=== PATIENT | female | born 1980 | race Caucasian/White ===

== ENCOUNTER 2016-11-07 22:10 | Emergency (ER) | payer MEDICAID ==
[2016-11-07] MEDS ORDERED: PREDNISONE 20 MG TAB PO ONE (22:27)
[2016-11-07] MEDS ORDERED: DIPHENHYDRAMINE HCL 25 MG CAPSULE PO ONE (22:27)
--- NOTE | 2016-11-07 22:27 | Emergency Department Record ---
History of Present Illness - General Chief complaint: Rash Stated complaint: RASH Time Seen by Provider: 11/07/16 22:22 Source: Patient Mode of Arrival: Ambulatory Limitations: No limitations - History of Present Illness Initial comments: 36 yo female presents with a poison lexi rash. She has been gardening recently. No fevers or chills. No shortness of breath. She is not a diabetic. It is on the arms legs, chest, abdomen, and face. No fevers. NO shortness of breath. Onset/Timin -: Days(s) Hx Tetanus Toxoid Vaccination: Yes Year of Tetanus Vaccination: 2014 Patient Tetanus UTD (within 5 yrs): Yes Location: Head, Face, LUE, RUE Severity: Mild Consistency: Constant Improves with: Topical medication Associated symptoms: Denies other symptoms Treatments Prior to Arrival: Benadryl - Related Data Previous Rx's Medication Instructions Recorded Albuterol Sulfate [Proair Hfa] 2 puff IH QID PRN #1 inhaler 12/20/15 Diphenhydramine HCl [Benadryl] 25 mg PO Q6H #20 cap 11/07/16 Prednisone [Prednisone 20Mg] 20 mg PO DAILY #10 tab 11/07/16 Allergies Allergy/AdvReac Type Severity Reaction Status Date / Time No Known Drug Allergies Allergy Verified 11/07/16 22:21 Travel Screening - Travel/Exposure Within Last 30 Days Have you traveled within the last 30 days?: No - Travel/Exposure Within Last Year Have you traveled outside the [place] in the last year?: No - Additonal Travel Details Have you been exposed to anyone with a communicable illness?: No Review of Systems Constitutional: Denies: Chills, Fever, Malaise, Weakness Eyes: Denies: Eye discharge ENT: Denies: Congestion, Throat pain Respiratory: Denies: Cough, Dyspnea, Hemoptysis, Stridor, Wheezes Cardiovascular: Denies: Chest pain Endocrine: Denies: Fatigue Gastrointestinal: Denies: Abdominal pain, Nausea, Vomiting Genitourinary: Denies: Dysuria, Urgency Musculoskeletal: Denies: Arthralgia, Back pain, Joint swelling, Myalgia Skin: Reports: Change in color, Pruritus, Rash Neurological: Denies: Headache Psychiatric: Denies: Anxiety Hematological/Lymphatic: Denies: Easy bleeding, Easy bruising Past Medical History - SOCIAL HISTORY Smoking Status: Current every day smoker Alcohol Use: None Drug Use: None - RESPIRATORY Hx Respiratory Disorders: No - CARDIOVASCULAR Hx Cardio Disorders: No - NEURO Hx Neuro Disorders: No - GI Hx GI Disorders: No - Hx Genitourinary Disorders: No - ENDOCRINE Hx Endocrine Disorders: Yes Hx Thyroid Disease: Yes - MUSCULOSKELETAL Hx Musculoskeletal Disorders: No - PSYCH Hx Psych Problems: Yes Hx Depression: Yes - HEMATOLOGY/ONCOLOGY Hx Hematology/Oncology Disorders: No Family Medical History Any Significant Family History?: No Physical Exam - General General Appearance: Alert, Oriented x3, Cooperative, No acute distress - Head Head exam: Normal inspection - Eye Eye exam: Normal appearance. negative: Conjunctival injection, Periorbital swelling - ENT ENT exam: Normal exam Ear exam: Normal external inspection Nasal Exam: Normal inspection Mouth exam: Normal external inspection - Neck Neck exam: Normal inspection, Full ROM. negative: Tenderness - Respiratory Respiratory exam: Normal lung sounds bilaterally. negative: Respiratory distress, Wheezes - Cardiovascular Cardiovascular Exam: Regular rate, Normal rhythm, Normal heart sounds - Extremities Extremities exam: negative: Normal inspection (rash) - Back Back exam: Reports: Normal inspection - Neurological Neurological exam: Alert, Normal gait, Oriented X3, Reflexes normal - Psychiatric Psychiatric exam: Normal affect, Normal mood - Skin Skin exam: Erythema Distribution of rash: Generalized Description of rash: Macular, Papular Course Vital Signs 11/07/16 22:14 Temperature 98.5 F Pulse Rate 90 Respiratory 20 Rate Blood Pressure 108/92 Pulse Ox 98 Disposition Disposition: Discharge Clinical Impression: Poison lexi Disposition: Home, Self-Care Condition: (1) Good Instructions: Poison Lexi (ED) Additional Instructions: Call your doctor for a recheck in the next week if not gone Return if worse, fever or any new concerns Prescriptions: Diphenhydramine HCl [Benadryl] 25 mg PO Q6H #20 cap Prednisone [Prednisone 20Mg] 20 mg PO DAILY #10 tab Forms: Patient Portal Access Time of Disposition: 22:28 Quality - Quality Measures Quality Measures: N/A - Blood Pressure Screening Does Patient Have Any of the Following: No Blood Pressure Classification: Hypertensive Reading Systolic Measurement: 108 Diastolic Measurement: 92 Screening for High Blood Pressure: < Pre-Hypertensive BP, F/U Documented > [ G8950] Pre-Hypertensive Follow-up Interventions: Referral to alternative/primary care provider.
== END 2016-11-07 22:39 | disposition home or self-care (01) ==
LOC: ER 22:10
DX: L23.7 Allergic contact dermatitis due to plants, except food (principal)
CPT/HCPCS: 99282; J7512

== ENCOUNTER 2017-07-01 00:15 | Emergency (ER) | payer MEDICAID ==
--- NOTE | 2017-07-01 00:39 | Emergency Department Record ---
History of Present Illness - General Chief Complaint: Indigestion Stated Complaint: INDIGESTION Time Seen by Provider: 07/01/17 00:22 Source: Patient Mode of Arrival: Ambulatory Limitations: No limitations - History of Present Illness Initial Comments: 37 yo female presents with epigastric pain on and off for about a week. The pain is on and off. It has been constant for about 4 hours. No definite aggravating or alleviating factors. The pain goes across the upper abdomen. No chest pain. No shortness of breath. No vomiting or diarrhea. No food association. She is prescribed Prilosec but does not take it. She does still have a gall bladder. MD Complaint: Other (epigastric pain) -: Week(s) (on and off) Onset: During rest Pain Location: Epigastric Severity: Mild Quality: Aching Consistency: Intermittent Improves With: Nothing Worsens With: Palpation Other Symptoms: Other - Related Data Home Medications Medication Instructions Recorded Confirmed Last Taken Bupropion HCl [Bupropion HCl] 100 mg PO DAILY 07/01/17 07/01/17 Unknown Previous Rx's Medication Instructions Recorded Albuterol Sulfate [Proair Hfa] 2 puff IH QID PRN #1 inhaler 12/20/15 Allergies Allergy/AdvReac Type Severity Reaction Status Date / Time No Known Drug Allergies Allergy Unverified 03/03/17 13:45 Review of Systems Constitutional: Denies: Chills, Fever, Malaise, Weakness Eyes: Denies: Eye discharge, Eye pain, Vision change ENT: Denies: Congestion, Throat pain Respiratory: Denies: Cough Cardiovascular: Denies: Chest pain, Syncope Endocrine: Denies: Fatigue Gastrointestinal: Reports: Abdominal pain. Denies: Constipation, Diarrhea, Hematemesis, Hematochezia, Nausea, Vomiting Genitourinary: Denies: Dysuria, Urgency Musculoskeletal: Reports: Back pain (sees a chiropractor). Denies: Arthralgia, Joint swelling, Myalgia Skin: Denies: Bruising, Change in color Neurological: Denies: Headache Psychiatric: Denies: Anxiety Hematological/Lymphatic: Denies: Blood Clots, Easy bleeding, Easy bruising, Swollen glands Past Medical History - SOCIAL HISTORY Smoking Status: Current every day smoker Drug Use: None - RESPIRATORY Hx Respiratory Disorders: No - CARDIOVASCULAR Hx Cardio Disorders: No - NEURO Hx Neuro Disorders: No - GI Hx GI Disorders: No - Hx Genitourinary Disorders: No - ENDOCRINE Hx Endocrine Disorders: Yes Hx Thyroid Disease: Yes - MUSCULOSKELETAL Hx Musculoskeletal Disorders: No - PSYCH Hx Psych Problems: Yes Hx Depression: Yes - HEMATOLOGY/ONCOLOGY Hx Hematology/Oncology Disorders: No Physical Exam - General General Appearance: Alert, Oriented x3, Cooperative, No acute distress Limitations: No limitations - Head Head exam: Atraumatic, Normal inspection - Eye Eye exam: Normal appearance. negative: Conjunctival injection, Scleral icterus - ENT ENT exam: Normal exam Ear exam: Normal external inspection Nasal Exam: Normal inspection Mouth exam: Normal external inspection - Neck Neck exam: Normal inspection, Full ROM. negative: Tenderness - Respiratory Respiratory exam: Normal lung sounds bilaterally. negative: Respiratory distress - Cardiovascular Cardiovascular Exam: Regular rate, Normal rhythm, Normal heart sounds Peripheral Pulses: 2+: Radial (R), Radial (L) - GI/Abdominal GI/Abdominal exam: Soft, Tenderness (tender epigastric to palpation, otherwise very soft). negative: Distended, Guarding, Rebound, Rigid - Rectal Rectal exam: Deferred - exam: Deferred - Extremities Extremities exam: Normal inspection - Back Back exam: Denies: CVA tenderness (R), CVA tenderness (L) - Neurological Neurological exam: Alert, Oriented X3 - Psychiatric Psychiatric exam: Normal affect, Normal mood - Skin Skin exam: Dry, Intact, Normal color, Warm Course Vital Signs 07/01/17 00:25 Temperature 98.2 F Pulse Rate [ 96 H Pulse Ox Probe] Respiratory 22 Rate Blood Pressure 134/94 [Left Arm] Pulse Ox 97 - Reevaluation(s) Reevaluation #1: 07/01/17 01:09 The CBC was reviewed No acute changes The patient report some but not complete resolution of the pain with GI cocktail Remaining labs pending 07/01/17 01:18 The CMP was reviewed. No significant changes of the bili, alk phos, ast, alt Normal Lipase 07/01/17 01:22 I discussed that the labs are normal I recommended abdominal US for the RUQ pain I offered a transfer tonight or arrange return for US in the morning She is comfortable, no fever, normal labs and prefers to return in the morning I called radiology. She can return for a 10am US. She will remain NPO until then Medical Decision Making - Lab Data Result diagrams: 07/01/17 00:45 04/11/18 00:45 Disposition Disposition: Discharge Clinical Impression: Epigastric pain, RUQ pain Disposition: Home, Self-Care Condition: (1) Good Instructions: Abdominal Pain (ED) Additional Instructions: Return at 9:30am for a recheck and an Ultrasound of the abdomen for the right upper quadrant and epigastric pain Return sooner or be seen if worse, fever, vomiting or any other concerns prior to then Do not eat between now and your ultrasound You may have water to drink Forms: Patient Portal Access Time of Disposition: 01:27 Quality - Quality Measures Quality Measures: N/A - Blood Pressure Screening Does Patient Have Any of the Following: No Blood Pressure Classification: Hypertensive Reading Systolic Measurement: 128 Diastolic Measurement: 90 Screening for High Blood Pressure: < Pre-Hypertensive BP, F/U Documented > [ G8950] Pre-Hypertensive Follow-up Interventions: Referral to alternative/primary care provider.
[2017-07-01] MEDS ORDERED: MAGNESIUM HYDROXIDE/AL HYDROX 30 ML, LIDOCAINE VISC 2% 200 MG PO ONE ×2 (00:40)
[2017-07-01 00:51] LABS: BASO % 0.4 % (0-6); EOS % 2.9 % (0-6); GRAN % 62.3 % (47-80); HEMATOCRIT 39.1 % (35.0-47.0); HEMOGLOBIN 12.6 gm/dl (11.6-16.0); LYMPH % 27.9 % (16-45); MEAN CELL VOLUME 90.5 fl (81-97); MEAN CORPUSCULAR HEMOGLOBIN 29.2 pg (27-33); MEAN CORPUSCULAR HGB CONC 32.2 g/dl (32-36); MEAN PLATELET VOLUME 9.3 fl (7.4-10.4); MONO % 6.5 % (0-9); PLATELET COUNT 360 K/uL (130-400); RED BLOOD COUNT 4.32 M/uL (3.80-5.40); RED CELL DISTRIBUTION WIDTH 14.3 % (11.5-14.5); WHITE BLOOD COUNT W/O DIFF 11.2 K/uL (4.2-12.2)
[2017-07-01] MEDS ORDERED: KETOROLAC 30 MG/ML VIAL IM ONE (01:00)
[2017-07-01 01:04] LABS: BILIRUBIN,TOTAL < 0.20 mg/dL (0.2-1.0); BLOOD UREA NITROGEN 13 mg/dL (6-20); CREATININE 0.8 mg/dL (0.5-0.9); EST GLOMERULAR FILTRATION RATE > 60 mL/min
[2017-07-01 01:07] LABS: GLUCOSE,RANDOM 107 mg/dL (74-109)
[2017-07-01 01:09] LABS: ALB/GLOB RATIO 1.3 (1.1-1.8); ALKALINE PHOSPHATASE 108 U/L (35-104); ALT/SGPT 18 U/L (<33); AST/SGOT 16 U/L (10.0-35.0); LIPASE 39 U/L (13-60)
== END 2017-07-01 01:44 | disposition home or self-care (01) ==
LOC: ER 00:15
DX: R10.13 Epigastric pain (principal); R10.11 Right upper quadrant pain; F17.210 Nicotine dependence, cigarettes, uncomplicated
CPT/HCPCS: 99283 ×2; 96372; 99284; 83690; 85025; 80053; 84703; 76700; J1885

== ENCOUNTER 2017-07-01 09:04 | Emergency (ER) | payer MEDICAID ==
--- NOTE | 2017-07-01 09:16 | Emergency Department Record ---
History of Present Illness - General Chief Complaint: Recheck - Other Stated Complaint: RECHECK/ULTRASOUND Time Seen by Provider: 07/01/17 09:12 Source: Patient Mode of arrival: Ambulatory Limitations: No limitations - History of Present Illness Initial Comments: The patient is here for a prescheduled US. She was in the ED this AM early due to a one week hx of upper AP. The pain is intermittent and not better or worse with eating. She denies any recent fever, chills, CP, SOB, or dysuria. The patient had normal lab work 8 hours ago and was asked to return this AM for the US. She states the pain is improved and she was able to sleep after discharge. There is no pain at this time but she is having mild tenderness to palpation of the RUQ. Complaint: Other Onset/Timin -: Days(s) Initial Visit For: Other Returns Today for: Other Symptoms Since Prior Visit: Improved Associated Symptoms: Abdominal pain - Related Data Previous Rx's Medication Instructions Recorded Albuterol Sulfate [Proair Hfa] 2 puff IH QID PRN #1 inhaler 12/20/15 Allergies Allergy/AdvReac Type Severity Reaction Status Date / Time No Known Drug Allergies Allergy Unverified 03/03/17 13:45 Travel Screening - Travel/Exposure Within Last 30 Days Have you traveled within the last 30 days?: No Review of Systems Constitutional: Denies: Chills, Fever Eyes: Denies: Eye discharge ENT: Denies: Congestion Respiratory: Denies: Cough, Dyspnea Past Medical History - SOCIAL HISTORY Smoking Status: Current every day smoker Alcohol Use: None Drug Use: None - RESPIRATORY Hx Respiratory Disorders: No - CARDIOVASCULAR Hx Cardio Disorders: No - NEURO Hx Neuro Disorders: No - GI Hx GI Disorders: No - Hx Genitourinary Disorders: No - ENDOCRINE Hx Endocrine Disorders: Yes Hx Thyroid Disease: Yes - MUSCULOSKELETAL Hx Musculoskeletal Disorders: No - PSYCH Hx Psych Problems: Yes Hx Depression: Yes - HEMATOLOGY/ONCOLOGY Hx Hematology/Oncology Disorders: No Family Medical History Any Significant Family History?: No Physical Exam - General General Appearance: Alert, Oriented x3, Cooperative, No acute distress - Head Head exam: Atraumatic, Normocephalic, Normal inspection - Eye Eye exam: Normal appearance, PERRL - Neck Neck exam: Normal inspection, Full ROM. negative: Tenderness - Respiratory Respiratory exam: Normal lung sounds bilaterally. negative: Respiratory distress - Cardiovascular Cardiovascular Exam: Regular rate, Normal rhythm, Normal heart sounds - GI/Abdominal GI/Abdominal exam: Soft, Tenderness (There is mild RUQ tenderness to palpation.) . negative: Distended, Guarding, Rebound, Rigid Course Vital Signs 07/01/17 09:09 Temperature 97.6 F Pulse Rate 79 Respiratory 20 Rate Blood Pressure 123/84 Pulse Ox 98 - Reevaluation(s) Reevaluation #1: The patient is doing very well at this time. She presently denies any pain or discomfort unless palpating the abdomen. I did explain to her that the US did not demonstrate any acute abnormality except a fatty liver. She is to eat a bland diet and take her Prilosec and see her PCP in 1-2 weeks for recheck. 07/01/17 10:22 Medical Decision Making - Data Complexity MDM Data: Labs Ordered and/or Reviewed, X-Ray Ordered and/or Reviewed - Lab Data Result diagrams: 07/01/17 09:20 - Radiology Data Radiology results: Report reviewed (US: Fatty liver, Neg GB abnormality.) Disposition Disposition: Discharge Clinical Impression: Epigastric pain Disposition: Home, Self-Care Condition: (2) Stable Instructions: Abdominal Pain (ED) Additional Instructions: Please eat a bland diet and take your Prilosec. Please see your family doctor in 1-2 weeks for recheck. Return to the ER for any worsening pain, fever, or vomiting. Forms: Patient Portal Access Time of Disposition: 10:24 Quality - Quality Measures Quality Measures: N/A - Blood Pressure Screening View Details: Yes Does Patient Have Any of the Following: No Blood Pressure Classification: Pre-Hypertensive BP Reading Systolic Measurement: 123 Diastolic Measurement: 84 Screening for High Blood Pressure: < Pre-Hypertensive BP, F/U Documented > [ G8950] Pre-Hypertensive Follow-up Interventions: Referral to alternative/primary care provider.
[2017-07-01 09:24] LABS: BASO % 0.5 % (0-6); EOS % 3.4 % (0-6); GRAN % 63.4 % (47-80); HEMATOCRIT 42.2 % (35.0-47.0); HEMOGLOBIN 13.1 gm/dl (11.6-16.0); LYMPH % 24.3 % (16-45); MEAN CORPUSCULAR HEMOGLOBIN 27.9 pg (27-33); MEAN PLATELET VOLUME 9.2 fl (7.4-10.4); MONO % 8.4 % (0-9); PLATELET COUNT 365 K/uL (130-400); RED BLOOD COUNT 4.69 M/uL (3.80-5.40); RED CELL DISTRIBUTION WIDTH 14.4 % (11.5-14.5); WHITE BLOOD COUNT W/O DIFF 10.7 K/uL (4.2-12.2)
--- NOTE | 2017-07-02 15:15 | ULTRASOUND REPORT ---
EXAM: ULTRASOUND ABDOMEN, COMPLETE HISTORY: RIGHT UPPER QUADRANT ABDOMINAL PAIN. TECHNIQUE: Complete real-time ultrasound examination of the abdomen. COMPARISON: None. FINDINGS: Visualized pancreas appeared negative although portions of the pancreas were obscured by overlying bowel content. Abdominal aorta appears negative. IVC was negative as seen. There is slight heterogeneity in the liver parenchyma. This probably represents some overall diffuse fatty infiltration of the liver with an area of slight sparing anteroinferiorly in the left lobe. Allowing for this, no discrete hepatic mass identified. No intrahepatic biliary dilatation seen. The right kidney measures 11.4 cm in length with no hydronephrosis evident. The common duct was seen and was of normal caliber. Gallbladder appears negative with no gallstones seen and no diffuse gallbladder wall thickening seen. The jewelry sales indicates that there was severe abdominal pain all over the abdomen, nonspecific to the region of the gallbladder. The left kidney measures 11 cm in length with no hydronephrosis evident. The spleen appears negative. IMPRESSION: 1. NO GALLSTONES OR BILIARY DILATATION SEEN. 2. NO HYDRONEPHROSIS EVIDENT. 3. THERE IS PROBABLY SOME RELATIVELY DIFFUSE FATTY INFILTRATION OF THE LIVER. THERE IS A NONSPECIFIC FOCAL AREA OF SOMEWHAT HYPOECHOIC APPEARANCE ALONG THE ANTEROINFERIOR ASPECT OF THE LEFT LOBE OF THE LIVER. THIS IS PROBABLY JUST AN AREA OF RELATIVE FOCAL FATTY SPARING. COMPARISON TO ANY PRIOR ABDOMEN ULTRASOUNDS WOULD BE USEFUL TO COMPARE. IF CLINICALLY WARRANTED, THIS COULD BE FURTHER ASSESSED WITH AN MRI OF THE LIVER IF NOT CONTRAINDICATED. JOB NUMBER: [id number] MTDD
== END 2017-07-01 10:37 | disposition home or self-care (01) ==
LOC: ER 09:04
DX: R10.13 Epigastric pain (principal); F17.210 Nicotine dependence, cigarettes, uncomplicated
CPT/HCPCS: 76700; 85025

== ENCOUNTER 2017-07-18 01:05 | Emergency (ER) | payer MEDICAID ==
[2017-07-18] MEDS ORDERED: ONDANSETRON HCL IV 4 MG/2 ML VIAL IVP ONE (01:17)
[2017-07-18] MEDS ORDERED: 0.9 % SODIUM CHLORIDE 1000ML 1,000 ML IV SCH (01:30)
--- NOTE | 2017-07-18 01:30 | Emergency Department Record ---
History of Present Illness - General Chief complaint: Cold Stated complaint: VOMITING,CHILLS Time Seen by Provider: 07/18/17 01:07 Source: Patient Mode of Arrival: Ambulatory Limitations: No limitations - History of Present Illness Initial comments: 37 yo female presents to ED for evaluation stating "I think I have a virus that isn't getting better". Patient reports non-productive cough and congestion symptoms as well as fever and chills. Patient reports that she was recently seen and evaluated, started on prednisone that improved her symptoms temporarily. Patient denies urinary symptoms or abdominal pain, denies headache or neck stiffness symptoms. MD complaint: Other Onset/Timin -: Days(s) Location: Other (cough) Quality: Aching Consistency: Constant, Getting worse Improves with: None Worsens with: None Context- Ear: Recent illness Associated Symptoms: Cough, Sore throat - Related Data Home Medications Medication Instructions Recorded Confirmed Last Taken Omeprazole [Prilosec] 20 mg PO DAILY 07/18/17 07/18/17 Unknown Previous Rx's Medication Instructions Recorded Doxycycline Hyclate [Doxycycline] 100 mg PO BID #14 cap 07/18/17 Ondansetron [Zofran Odt] 4 mg PO Q8H PRN #15 tab.rapdis 07/18/17 Allergies Allergy/AdvReac Type Severity Reaction Status Date / Time No Known Drug Allergies Allergy Unverified 07/08/17 14:24 Travel Screening - Travel/Exposure Within Last 30 Days Have you traveled within the last 30 days?: No - Travel/Exposure Within Last Year Have you traveled outside the [place] in the last year?: No - Additonal Travel Details Have you been exposed to anyone with a communicable illness?: No - Travel Symptoms Symptom Screening: None Review of Systems Constitutional: Reports: Chills, Fever, Malaise. Denies: Night sweats Eyes: Denies: Eye discharge, Eye pain ENT: Reports: Congestion. Denies: Ear pain, Epistaxis Respiratory: Reports: Cough. Denies: Dyspnea Cardiovascular: Denies: Chest pain, Dyspnea on exertion, Palpitations Endocrine: Reports: Fatigue Gastrointestinal: Reports: Nausea, Vomiting. Denies: Abdominal pain, Constipation Genitourinary: Denies: Incontinence, Retention Musculoskeletal: Denies: Arthralgia, Back pain Skin: Denies: Bruising, Change in color Neurological: Denies: Abnormal gait, Confusion, Headache, Seizure Psychiatric: Denies: Anxiety Hematological/Lymphatic: Denies: Anemia, Blood Clots Past Medical History - SOCIAL HISTORY Smoking Status: Current every day smoker Alcohol Use: None Drug Use: None - RESPIRATORY Hx Respiratory Disorders: No - CARDIOVASCULAR Hx Cardio Disorders: No - NEURO Hx Neuro Disorders: No - GI Hx GI Disorders: No - Hx Genitourinary Disorders: No - ENDOCRINE Hx Endocrine Disorders: Yes Hx Thyroid Disease: Yes - MUSCULOSKELETAL Hx Musculoskeletal Disorders: No - PSYCH Hx Psych Problems: Yes Hx Depression: Yes - HEMATOLOGY/ONCOLOGY Hx Hematology/Oncology Disorders: No Family Medical History Any Significant Family History?: No Physical Exam - General General Appearance: Alert, Oriented x3, Cooperative, Mild distress Limitations: No limitations - Head Head exam: Atraumatic, Normocephalic, Normal inspection Head exam detail: negative: Abrasion, Contusion, Gates's sign, General tenderness, Hematoma, Laceration - Eye Eye exam: Normal appearance. negative: Conjunctival injection, Periorbital swelling, Periorbital tenderness, Scleral icterus - ENT Ear exam: negative: Auricular hematoma, Auricular trauma Nasal Exam: negative: Active bleeding, Discharge, Dried blood, Foreign body Mouth exam: negative: Drooling, Laceration, Muffled voice, Tongue elevation - Neck Neck exam: Normal inspection. negative: Meningismus, Tenderness - Respiratory Respiratory exam: Normal lung sounds bilaterally. negative: Rales, Respiratory distress, Rhonchi, Stridor - Cardiovascular Cardiovascular Exam: Regular rate, Normal rhythm, Normal heart sounds - GI/Abdominal GI/Abdominal exam: Soft. negative: Rebound, Rigid, Tenderness - Rectal Rectal exam: Deferred - exam: Deferred - Extremities Extremities exam: Normal inspection. negative: Calf tenderness, Pedal edema, Tenderness - Back Back exam: Denies: CVA tenderness (R), CVA tenderness (L) - Neurological Neurological exam: Alert, Normal gait, Oriented X3 - Psychiatric Psychiatric exam: Normal affect, Normal mood - Skin Skin exam: Normal color. negative: Abrasion Type of lesion: negative: abrasion Course Vital Signs 07/18/17 01:15 Temperature 99.4 F Pulse Rate [ 110 H Pulse Ox Probe] Respiratory 24 Rate Blood Pressure 134/94 [Left Arm] Pulse Ox 97 - Reevaluation(s) Reevaluation #1: 07/18/17 02:02 Labs reviewed and are grossly unremarkable for an acute process. Patient reassessed and reports improvement of her symptoms, will prescribe Zofran for her nausea symptoms and Doxycycline for her URI symptoms. Patient appears stable for discharge at this time. Medical Decision Making - Lab Data Result diagrams: 07/18/17 01:40 07/18/17 01:40 Disposition Disposition: Discharge Clinical Impression: URI (upper respiratory infection) Qualifiers: URI type: unspecified URI Qualified Code(s): J06.9 - Acute upper respiratory infection, unspecified Disposition: Home, Self-Care Condition: (2) Stable Instructions: Upper Respiratory Infection (ED) Additional Instructions: Return to ED if your symptoms worsen or if you have any concerns. Doxycycline and Zofran as directed. Follow-up with your family doctor in 3-5 days as directed. Prescriptions: Doxycycline Hyclate [Doxycycline] 100 mg PO BID #14 cap Ondansetron [Zofran Odt] 4 mg PO Q8H PRN #15 tab.rapdis PRN Reason: Nausea/Vomiting Forms: Patient Portal Access Time of Disposition: 02:05 Quality - Quality Measures Quality Measures: N/A - Blood Pressure Screening Does Patient Have Any of the Following: No Blood Pressure Classification: Hypertensive Reading Systolic Measurement: 134 Diastolic Measurement: 94 Screening for High Blood Pressure: < First Hypertensive BP, F/U Documented > [ G8950] First Hypertensive Follow-up Interventions: Referral to alternative/primary care provider.
[2017-07-18 01:46] LABS: BASO % 0.4 % (0-6); EOS % 4.3 % (0-6); HEMATOCRIT 41.5 % (35.0-47.0); HEMOGLOBIN 13.4 gm/dl (11.6-16.0); LYMPH % 17.9 % (16-45); MEAN CELL VOLUME 90.4 fl (81-97); MEAN CORPUSCULAR HEMOGLOBIN 29.2 pg (27-33); MEAN CORPUSCULAR HGB CONC 32.3 g/dl (32-36); MEAN PLATELET VOLUME 9.6 fl (7.4-10.4); MONO % 8.4 % (0-9); PLATELET COUNT 374 K/uL (130-400); RED BLOOD COUNT 4.59 M/uL (3.80-5.40); RED CELL DISTRIBUTION WIDTH 14.7 % (11.5-14.5)
[2017-07-18 01:47] LABS: URINE APPEARANCE CLEAR; URINE BILIRUBIN NEGATIVE (NEGATIVE); URINE BLOOD NEGATIVE (NEGATIVE); URINE COLOR YELLOW; URINE GLUCOSE (UA) NEGATIVE (NEGATIVE); URINE KETONE NEGATIVE (NEGATIVE); URINE LEUKOCYTE ESTERASE NEGATIVE (NEGATIVE); URINE NITRITE NEGATIVE (NEGATIVE); URINE PROTEIN TRACE (NEGATIVE); URINE UROBILINOGEN 0.2 E.U./dL (0.20 - 1.00)
[2017-07-18 01:51] LABS: HCG,QUALITATIVE URINE NEGATIVE (NEGATIVE); URINE EPITHELIAL CELLS 0 - 2 (FEW); URINE RBC NONE SEEN (NONE SEEN); URINE WBC 0 - 2 (0-2/hpf)
[2017-07-18 01:52] LABS: BLOOD UREA NITROGEN 11 mg/dL (6-20); INFLUENZA A NEGATIVE (NEGATIVE); INFLUENZA B NEGATIVE (NEGATIVE)
[2017-07-18 01:53] LABS: CREATININE 0.8 mg/dL (0.5-0.9); EST GLOMERULAR FILTRATION RATE > 60 mL/min; TOTAL PROTEIN 7.2 g/dL (6.6-8.7)
[2017-07-18 01:55] LABS: GLUCOSE,RANDOM 106 mg/dL (74-109)
[2017-07-18 01:58] LABS: ALB/GLOB RATIO 1.3 (1.1-1.8); ALKALINE PHOSPHATASE 109 U/L (35-104); ALT/SGPT 17 U/L (<33); AST/SGOT 15 U/L (10.0-35.0)
== END 2017-07-18 02:19 | disposition home or self-care (01) ==
LOC: ER 01:05
DX: J06.9 Acute upper respiratory infection, unspecified (principal); R05 Cough; R11.2 Nausea with vomiting, unspecified; F17.210 Nicotine dependence, cigarettes, uncomplicated
CPT/HCPCS: 99284 ×2; 85025; 80053; 81001; 81025; 87400; J2405; J7030

== ENCOUNTER 2017-11-20 10:06 | Emergency (ER) | payer MEDICAID ==
[2017-11-20] MEDS ORDERED: CLINDAMYCIN 150 MG CAP PO ONE (11:22)
--- NOTE | 2017-11-20 11:28 | Emergency Department Record ---
History of Present Illness - General Chief complaint: Abscess Stated complaint: CYST ON LIP FACE SWELLED Time Seen by Provider: 11/20/17 11:20 Source: Patient Mode of Arrival: Ambulatory Limitations: No limitations - History of Present Illness Initial comments: 37 yo female presents with pain and swelling of the upper lip on the right. She had a "cyst" inside the lip on Thursday. She popped it and has drained it a a couple of occasions. The lip swelling has continued. No facial redness. No eye pain or swelling. No fevers. The drainage has stopped. NO lesions on the face. MD complaint: Abscess/boil Onset/Timin -: Days(s) Hx Tetanus Toxoid Vaccination: Yes Year of Tetanus Vaccination: 2014 Location: Face Severity: Moderate Severity scale (1-10): 7 Quality: Other Consistency: Constant Improves with: None Worsens with: None Context: None Associated symptoms: Denies other symptoms Treatments Prior to Arrival: Attempted to drain pus at home - Related Data Previous Rx's Medication Instructions Recorded Clindamycin HCl [Cleocin HCl] 300 mg PO QID #40 capsule 11/20/17 Ibuprofen [Motrin 600Mg] 600 mg PO Q6H #20 tablet 11/20/17 Allergies Allergy/AdvReac Type Severity Reaction Status Date / Time No Known Drug Allergies Allergy Verified 11/20/17 11:02 Travel Screening - Travel/Exposure Within Last 30 Days Have you traveled within the last 30 days?: No Review of Systems Constitutional: Denies: Chills, Fever, Malaise, Weakness Eyes: Denies: Eye discharge, Eye pain, Vision change ENT: Reports: Other (Lip pain). Denies: Congestion, Ear pain, Throat pain Cardiovascular: Denies: Chest pain, Syncope Endocrine: Denies: Fatigue Gastrointestinal: Denies: Abdominal pain, Diarrhea, Nausea, Vomiting Genitourinary: Denies: Dysuria, Urgency Musculoskeletal: Denies: Arthralgia, Back pain, Myalgia Skin: Reports: As per HPI, Change in color, Lesions, Rash. Denies: Bruising Neurological: Denies: Headache Psychiatric: Denies: Anxiety Hematological/Lymphatic: Denies: Easy bleeding, Easy bruising Past Medical History - SOCIAL HISTORY Smoking Status: Current every day smoker Alcohol Use: None Drug Use: None - RESPIRATORY Hx Respiratory Disorders: No - CARDIOVASCULAR Hx Cardio Disorders: No - NEURO Hx Neuro Disorders: No - GI Hx GI Disorders: No - Hx Genitourinary Disorders: No - ENDOCRINE Hx Endocrine Disorders: Yes Hx Thyroid Disease: Yes - MUSCULOSKELETAL Hx Musculoskeletal Disorders: No - PSYCH Hx Psych Problems: Yes Hx Depression: Yes - HEMATOLOGY/ONCOLOGY Hx Hematology/Oncology Disorders: No Family Medical History Any Significant Family History?: No Physical Exam - General General Appearance: Alert, Oriented x3, Cooperative, No acute distress Limitations: No limitations - Head Head exam: negative: Normal inspection Image of Face/Head: 1 - normal external skin, no lesions externally, soft swelling of the right side of the upper lip. No erythema. Interally raw mucosal site where it appears she drained the original lesion - Eye Eye exam: Normal appearance. negative: Conjunctival injection - ENT ENT exam: Mucous membranes moist. negative: Mucous membranes dry, Normal orophraynx (see above) Ear exam: Normal external inspection Nasal Exam: Normal inspection Mouth exam: Normal external inspection, Tongue normal. negative: Tongue elevation Teeth exam: Normal inspection. negative: Dental caries, Gingival enlargement Throat exam: Normal inspection. negative: Tonsillar erythema - Neck Neck exam: Normal inspection, Full ROM. negative: Lymphadenopathy, Tenderness - Respiratory Respiratory exam: Normal lung sounds bilaterally. negative: Respiratory distress - Neurological Neurological exam: Alert, Oriented X3 - Psychiatric Psychiatric exam: Normal affect, Normal mood - Skin Skin exam: Dry, Intact, Normal color, Warm Course Vital Signs 11/20/17 10:58 Temperature 98.1 F Pulse Rate 85 Respiratory 18 Rate Blood Pressure 137/91 Pulse Ox 97 - Reevaluation(s) Reevaluation #1: Bedside US was used to assess for an organized fluid collection No visible obvious fluid collection or abscess I recommend warm compresses, Clindamycin and reassess in 24-48 if not improving. She was instructed to return or be seen sooner if worse 11/20/17 11:36 Disposition Disposition: Discharge Clinical Impression: Cellulitis of lip Disposition: Home, Self-Care Condition: (1) Good Instructions: Cellulitis (ED) Additional Instructions: Apply a warm compress every 6 hours Take the antibiotic every 6 hours Return if worse, fever, skin blisters, drainage, face swelling, face redness Prescriptions: Clindamycin HCl [Cleocin HCl] 300 mg PO QID #40 capsule Ibuprofen [Motrin 600Mg] 600 mg PO Q6H #20 tablet Forms: Patient Portal Access Time of Disposition: 11:38 Quality - Quality Measures Quality Measures: N/A - Blood Pressure Screening Does Patient Have Any of the Following: No Blood Pressure Classification: Hypertensive Reading Systolic Measurement: 137 Diastolic Measurement: 91 Screening for High Blood Pressure: < Pre-Hypertensive BP, F/U Documented > [ G8950] Pre-Hypertensive Follow-up Interventions: Referral to alternative/primary care provider.
[2017-11-20] MEDS ORDERED: IBUPROFEN 600 MG TABLET PO ONE (11:35)
== END 2017-11-20 11:48 | disposition home or self-care (01) ==
LOC: ER 10:06
DX: K13.0 Diseases of lips (principal); F17.210 Nicotine dependence, cigarettes, uncomplicated
CPT/HCPCS: 99283

== ENCOUNTER 2018-03-17 18:47 | Emergency (ER) | payer MEDICAID ==
--- NOTE | 2018-03-17 19:10 | Emergency Department Record ---
History of Present Illness - General Chief complaint: Dental Stated complaint: FACIAL SWELLILNG Time Seen by Provider: 03/17/18 18:55 Source: Patient Mode of Arrival: Ambulatory Limitations: No limitations - History of Present Illness Initial comments: pt c/o a 'cyst' in the r upper lip. she has had this before and has 'drained' it herself and then got a cellulitis involving the side of her face [5mos ago]. she was given clindamycin and that helped. MD complaint: Other Onset/Timin -: Days(s) Severity: Moderate Severity scale (1-10): 4 Quality: Aching Consistency: Constant Associated Symptoms: Other (swelling of lip) - Related Data Home Medications Medication Instructions Recorded Confirmed Last Taken Levothyroxine Sodium [Synthroid] 50 mcg PO DAILY 03/17/18 03/17/18 1 Day Ago ~03/16/18 Lurasidone HCl [Latuda] 40 mg PO DAILY 03/17/18 03/17/18 1 Day Ago ~03/16/18 Previous Rx's Medication Instructions Recorded Clindamycin HCl 300 mg PO Q6HR #28 capsule 03/17/18 Allergies Allergy/AdvReac Type Severity Reaction Status Date / Time No Known Drug Allergies Allergy Verified 03/17/18 18:54 Travel Screening - Travel/Exposure Within Last 30 Days Have you traveled within the last 30 days?: No - Travel/Exposure Within Last Year Have you traveled outside the [place] in the last year?: No - Additonal Travel Details Have you been exposed to anyone with a communicable illness?: No - Travel Symptoms Symptom Screening: None Review of Systems Reviewed: No additional complaints except as noted below Constitutional: Reports: As per HPI. Denies: Chills, Fever, Malaise, Night sweats, Weakness, Weight change Eyes: Reports: As per HPI. Denies: Eye discharge, Eye pain, Photophobia, Vision change ENT: Reports: As per HPI. Denies: Congestion, Dental pain, Ear pain, Epistaxis , Hearing loss, Throat pain Respiratory: Reports: As per HPI. Denies: Cough, Dyspnea, Hemoptysis, Stridor, Wheezes Cardiovascular: Reports: As per HPI. Denies: Arrhythmia, Chest pain, Dyspnea on exertion, Edema, Murmurs, Orthopnea, Palpitations, Paroxysmal nocturnal dyspnea, Rheumatic Fever, Syncope Endocrine: Reports: As per HPI. Denies: Fatigue, Heat or cold intolerance, Polydipsia, Polyuria Gastrointestinal: Reports: As per HPI. Denies: Abdominal pain, Constipation, Diarrhea, Hematemesis, Hematochezia, Melena, Nausea, Vomiting Genitourinary: Reports: As per HPI. Denies: Abnormal menses, Discharge, Dyspareunia, Dysuria, Frequency, Hematuria, Incontinence, Retention, Urgency Musculoskeletal: Reports: As per HPI. Denies: Arthralgia, Back pain, Gout, Joint swelling, Myalgia, Neck pain Skin: Reports: As per HPI. Denies: Bruising, Change in color, Change in hair/ nails, Lesions, Pruritus, Rash Neurological: Reports: As per HPI. Denies: Abnormal gait, Confusion, Headache, Numbness, Paresthesias, Seizure, Tingling, Tremors, Vertigo, Weakness Psychiatric: Reports: As per HPI. Denies: Anxiety, Auditory hallucinations, Depression, Homicidal thoughts, Suicidal thoughts, Visual hallucinations Hematological/Lymphatic: Reports: As per HPI. Denies: Anemia, Blood Clots, Easy bleeding, Easy bruising, Swollen glands Past Medical History - SOCIAL HISTORY Smoking Status: Current every day smoker Alcohol Use: None, Rare Drug Use: None - RESPIRATORY Hx Respiratory Disorders: No - CARDIOVASCULAR Hx Cardio Disorders: No - NEURO Hx Neuro Disorders: No - GI Hx GI Disorders: No - Hx Genitourinary Disorders: No - ENDOCRINE Hx Endocrine Disorders: Yes Hx Thyroid Disease: Yes - MUSCULOSKELETAL Hx Musculoskeletal Disorders: No - PSYCH Hx Psych Problems: Yes Hx Depression: Yes - HEMATOLOGY/ONCOLOGY Hx Hematology/Oncology Disorders: No Family Medical History Any Significant Family History?: Yes Physical Exam - General General Appearance: Alert, Oriented x3, Cooperative, No acute distress - Head Head exam: Normal inspection - Eye Eye exam: Normal appearance, PERRL, EOMI Pupils: Normal accommodation - ENT ENT exam: Normal exam, Mucous membranes moist, Normal external ear exam, Normal orophraynx, TM's normal bilaterally Ear exam: Normal external inspection. negative: External canal tenderness Nasal Exam: Normal inspection. negative: Discharge, Sinus tenderness Mouth exam: Tongue normal, Other (firm pea sized nodule in r upper lip. minor swelling. erythema to inside of lip) Teeth exam: Normal inspection. negative: Dental caries Throat exam: Normal inspection. negative: Tonsillar erythema, Tonsillar exudate - Neck Neck exam: Normal inspection, Full ROM. negative: Tenderness - Respiratory Respiratory exam: Normal lung sounds bilaterally. negative: Respiratory distress - Cardiovascular Cardiovascular Exam: Regular rate, Normal rhythm, Normal heart sounds - GI/Abdominal GI/Abdominal exam: Soft, Normal bowel sounds. negative: Tenderness - Rectal Rectal exam: Deferred - exam: Deferred - Extremities Extremities exam: Normal inspection, Full ROM, Normal capillary refill. negative: Tenderness - Back Back exam: Reports: Normal inspection, Full ROM. Denies: Muscle spasm, Rash noted, Tenderness - Neurological Neurological exam: Alert, CN II-XII intact, Normal gait, Oriented X3 - Psychiatric Psychiatric exam: Normal affect, Normal mood - Skin Skin exam: Dry, Intact, Normal color, Warm Course Vital Signs 03/17/18 18:49 Temperature 98.0 F Pulse Rate 85 Respiratory 18 Rate Blood Pressure 120/89 Pulse Ox 99 Disposition Disposition: Discharge Clinical Impression: Median nodule of upper lip Cellulitis Qualifiers: Site of cellulitis: face Qualified Code(s): L03.211 - Cellulitis of face Disposition: Home, Self-Care Condition: (1) Good Instructions: Cellulitis (ED) Additional Instructions: follow up with family doctor. tomorrow. follow up with oral surgeon imelda without fail. return sooner if worse. moist heat. motrin as needed Prescriptions: Clindamycin HCl 300 mg PO Q6HR #28 capsule Quality - Quality Measures Quality Measures: N/A - Blood Pressure Screening Does Patient Have Any of the Following: No Blood Pressure Classification: Pre-Hypertensive BP Reading Systolic Measurement: 120 Diastolic Measurement: 89 Screening for High Blood Pressure: < Pre-Hypertensive BP, F/U Documented > [ G8950] Pre-Hypertensive Follow-up Interventions: Follow-up with rescreen every year.
== END 2018-03-17 19:40 | disposition home or self-care (01) ==
LOC: ER 18:47
DX: L03.211 Cellulitis of face (principal); K13.0 Diseases of lips; F17.210 Nicotine dependence, cigarettes, uncomplicated
CPT/HCPCS: 99282

== ENCOUNTER 2018-03-20 23:05 | Emergency (ER) | payer MEDICAID ==
--- NOTE | 2018-03-20 23:30 | Emergency Department Record ---
History of Present Illness - General Chief complaint: Pain Stated complaint: FACIAL SWELLING/PAIN Time Seen by Provider: 03/20/18 23:08 Source: Patient Mode of Arrival: Ambulatory Limitations: No limitations - History of Present Illness Initial comments: 37 yo female presents to ED for evaluation of increased swelling and pain to the right upper lip. Patient reports that she is taking Augmentin and Clindamycin following examination for facial cellulitis 03/17/18, reports that her pain symptoms have worsened. Patient denies fevers, chills, or recent illness. Patient denies health problems at her baseline. MD Complaint: Other Onset/Timin -: Days(s) History of Same: Yes Radiation: Proximal Severity scale (1-10): 8 Quality: Aching Consistency: Constant Improves with: Nothing Worsens with: Palpation Associated Symptoms: Denies other symptoms - Related Data Home Medications Medication Instructions Recorded Confirmed Last Taken Ibuprofen [Motrin] 800 mg PO Q8H PRN 03/20/18 03/20/18 03/20/18 Previous Rx's Medication Instructions Recorded Clindamycin HCl 300 mg PO Q6HR #28 capsule 03/17/18 Hydrocodone/Acetaminophen [Haw[place]orne 1 each PO Q6H PRN #5 tablet 03/21/18 7.5-325 Tablet] Allergies Allergy/AdvReac Type Severity Reaction Status Date / Time No Known Drug Allergies Allergy Unverified 03/18/18 15:23 Travel Screening - Travel/Exposure Within Last 30 Days Have you traveled within the last 30 days?: No - Travel Symptoms Symptom Screening: None Review of Systems Constitutional: Denies: Chills, Fever, Malaise, Night sweats Eyes: Denies: Eye discharge, Eye pain ENT: Reports: Other (Right upper lip swelling and pain). Denies: Congestion, Ear pain, Epistaxis Respiratory: Denies: Cough, Dyspnea Cardiovascular: Denies: Chest pain, Dyspnea on exertion Endocrine: Denies: Fatigue, Heat or cold intolerance Gastrointestinal: Denies: Abdominal pain, Nausea, Vomiting Genitourinary: Denies: Incontinence, Retention Musculoskeletal: Denies: Arthralgia, Back pain Skin: Denies: Bruising, Change in color Neurological: Denies: Abnormal gait, Confusion, Headache, Seizure Psychiatric: Denies: Anxiety Hematological/Lymphatic: Denies: Anemia, Blood Clots Past Medical History - SOCIAL HISTORY Smoking Status: Current every day smoker Alcohol Use: None Drug Use: None - RESPIRATORY Hx Respiratory Disorders: No - CARDIOVASCULAR Hx Cardio Disorders: No - NEURO Hx Neuro Disorders: No - GI Hx GI Disorders: No - Hx Genitourinary Disorders: No - ENDOCRINE Hx Endocrine Disorders: Yes Hx Thyroid Disease: Yes - MUSCULOSKELETAL Hx Musculoskeletal Disorders: No - PSYCH Hx Psych Problems: Yes Hx Depression: Yes - HEMATOLOGY/ONCOLOGY Hx Hematology/Oncology Disorders: No Family Medical History Any Significant Family History?: No Family Hx Comment (NOT TO BE USED IN PLACE OF ITEMS BELOW): NONE Physical Exam - General General Appearance: Alert, Oriented x3, Cooperative, Mild distress Limitations: No limitations - Head Head exam: Atraumatic, Normocephalic, Normal inspection Head exam detail: negative: Abrasion, Contusion, Gates's sign, General tenderness, Hematoma, Laceration - Eye Eye exam: Normal appearance. negative: Conjunctival injection, Periorbital swelling, Periorbital tenderness, Scleral icterus - ENT Ear exam: negative: Auricular hematoma, Auricular trauma Nasal Exam: negative: Active bleeding, Discharge, Dried blood, Foreign body Mouth exam: Other (Swelling/induration to the right upper lip). negative: Drooling, Laceration, Muffled voice, Tongue elevation Throat exam: negative: Tonsillar erythema, Tonsillomegaly, R peritonsillar mass , L peritonsillar mass - Neck Neck exam: Normal inspection. negative: Meningismus, Tenderness - Respiratory Respiratory exam: Normal lung sounds bilaterally. negative: Rales, Respiratory distress, Rhonchi, Stridor - Cardiovascular Cardiovascular Exam: Regular rate, Normal rhythm, Normal heart sounds - GI/Abdominal GI/Abdominal exam: Soft. negative: Rebound, Rigid, Tenderness - Rectal Rectal exam: Deferred - exam: Deferred - Extremities Extremities exam: Normal inspection. negative: Pedal edema, Tenderness - Back Back exam: Denies: CVA tenderness (R), CVA tenderness (L) - Neurological Neurological exam: Alert, Normal gait, Oriented X3 - Psychiatric Psychiatric exam: Normal affect, Normal mood - Skin Skin exam: Normal color. negative: Abrasion Type of lesion: negative: abrasion Course Vital Signs 03/20/18 23:12 Temperature 98.4 F Pulse Rate 104 H Respiratory 18 Rate Blood Pressure 122/90 Pulse Ox 96 - Reevaluation(s) Reevaluation #1: 03/21/18 00:33 CT Maxillofacial Bones: STS right upper lip, no discrete fluid collection Patient was updated on her CT imaging result, instructed to continue her antibiotics as prescribed. Will discharge home on [place] as directed as well. Patient has follow-up appointment Thursday morning with Dr. Rothman. Disposition Disposition: Discharge Clinical Impression: Cellulitis Qualifiers: Site of cellulitis: mouth Qualified Code(s): K12.2 - Cellulitis and abscess of mouth Disposition: Home, Self-Care Condition: (2) Stable Instructions: Cellulitis (ED) Additional Instructions: Return to ED if your symptoms worsen or if you have any concerns. Augmentin, Clindamycin as directed. Follow-up with Lorna Thursday as scheduled. Prescriptions: Hydrocodone/Acetaminophen [Hawthorne 7.5-325 Tablet] 1 each PO Q6H PRN #5 tablet PRN Reason: Pain - Mod To Severe (5-10) Forms: Patient Portal Access Time of Disposition: 00:37 Quality - Quality Measures Quality Measures: N/A - Blood Pressure Screening Does Patient Have Any of the Following: No Blood Pressure Classification: Hypertensive Reading Systolic Measurement: 122 Diastolic Measurement: 90 Screening for High Blood Pressure: < First Hypertensive BP, F/U Documented > [ G8950] First Hypertensive Follow-up Interventions: Referral to alternative/primary care provider.
[2018-03-21] MEDS ORDERED: HYDROCODONE/APAP 7.5/325MG TABLET PO ONE (00:37)
--- NOTE | 2018-03-21 22:36 | CT SCAN REPORT ---
EXAM: CT SCAN MAXILLOFACIAL WO CONTRAST HISTORY: 37-YEAR-OLD FEMALE WITH MASS, LUMP, OR SWELLING RIGHT LIP AND PAIN. TECHNIQUE: Routine noncontrast CT images of the maxillofacial bones were obtained. FINDINGS: Note is made of ill-defined subcutaneous edema and fat stranding within the right upper lip correlating with the patient's palpable finding. Soft tissue swelling extends to the maxilla, though no overlying osseous abnormality or clear evidence for cortical irregularity or adjacent odontogenic disease. Findings likely relate to phlegmon. Lack of IV contrast limits assessment for abscess. There are enlarged right submandibular lymph nodes measuring up to 12 mm short axis, probably reactive. There is also an 11 mm short axis right jugulodigastric lymph node, also probably reactive. No facial bone fracture. Orbital contents are unremarkable. There is mild scattered paranasal sinus mucosal thickening. Incidental note made leftward nasal septal deviation and a left-sided spur. IMPRESSION: 1. ILL-DEFINED SOFT TISSUE SWELLING/EDEMA RIGHT UPPER LIP EXTENDING TO THE MAXILLA, MOST CONSISTENT WITH CELLULITIS/PHLEGMON. ASSESSMENT FOR ABSCESS LIMITED ON NONCONTRAST EXAM. THE MAXILLA ITSELF APPEARS UNREMARKABLE WITHOUT DESTRUCTIVE OSSEOUS ABNORMALITY. 2. MILDLY PROMINENT RIGHT SUBMANDIBULAR AND JUGULODIGASTRIC LYMPH NODES, PROBABLY REACTIVE. 3. MILD RIGHT MAXILLARY SINUSITIS. JOB NUMBER: [id number] MTDD
== END 2018-03-21 00:48 | disposition home or self-care (01) ==
LOC: ER 23:05
DX: K12.2 Cellulitis and abscess of mouth (principal); F17.210 Nicotine dependence, cigarettes, uncomplicated
CPT/HCPCS: 70486; 99283